=== PATIENT | male | born 1965 | race African-American/Black ===

== ENCOUNTER 2018-03-06 12:15 | Inpatient (IN) | payer OTHER ==
[2018-03-06 14:23] VITALS: BMI 20.3
--- NOTE | 2018-03-06 18:47 | HP ---
CIWA Score - CIWA Score Nausea/Vomitin-No Nausea/No Vomiting Muscle Tremors: 2 Anxiety: 3 Agitation: 4-Moderately Restless Paroxysmal Sweats: 2 Orientation: 0-Oriented Tacttile Disturbances: 1-Very Mild Itch/Numbness Auditory Disturbances: 0-None Visual Disturbances: 2-Mild Sensitivity Headache: 0-None Present CIWA-Ar Total Score: 14 Admission ROS BHS - HPI Chief Complaint: alcohol withdrawal symptoms Allergies/Adverse Reactions: Allergies Allergy/AdvReac Type Severity Reaction Status Date / Time No Known Allergies Allergy Verified 03/06/18 16:52 History of Present Illness: 52 yo male with hx of alcohol, nicotine and coaine dependence is here seeking detox. Last detox [facility] 2000. PMHX: HIV+, bipolar and schizophrenia. Denies suicidal / homicidal ideation or hx of suicide attempt. Denies hx of seizures or blackouts. Reports longest period of sobriety 10 years while incarcerated. Exam Limitations: No Limitations - Ebola screening Have you traveled outside of the country in the last 21 days: No Have you had contact with anyone from an Ebola affected area: No Have you been sick,other than usual withdrawal symptoms: No Do you have a fever: No - Review of Systems Constitutional: Loss of Appetite, Changes in sleep, Unintentional Wgt. Loss (30 lbs) EENT: reports: Nose Congestion, Other (decrease vision left) Respiratory: reports: No Symptoms reported Cardiac: reports: No Symptoms Reported GI: reports: Poor Fluid Intake : reports: No Symptoms Reported Musculoskeletal: reports: No Symptoms Reported Integumentary: reports: Dryness Neuro: reports: No Symptoms reported Endocrine: reports: Increased Thirst Hematology: reports: No Symptoms Reported Psychiatric: reports: Orientated x3, Agitated Other Systems: Reviewed and Negative Patient History - Patient Medical History Hx Anemia: No Hx Asthma: No Hx Chronic Obstructive Pulmonary Disease (COPD): No Hx Cancer: No Hx Cardiac Disorders: No Hx Congestive Heart Failure: No Hx Hypertension: No Hx Hypercholesterolemia: No Hx Pacemaker: No HX Cerebrovascular Accident: No Hx Seizures: No Hx Dementia: No Hx Diabetes: No Hx Gastrointestinal Disorders: No Hx Liver Disease: No Hx Genitourinary Disorders: No Hx Sexually Transmitted Disorders: No Hx Renal Disease (ESRD): No Hx Thyroid Disease: No Hx Human Immunodeficiency Virus (HIV): Yes (dx 1983 on Trimeq) Hx Hepatitis C: No Hx Depression: Yes Hx Suicide Attempt: No Hx Bipolar Disorder: Yes Hx Schizophrenia: Yes - Patient Surgical History Past Surgical History: Yes Hx Abdominal Surgery: Yes (Bilateral inguinal hernia sx) Other Surgical History: Sx L index finger. Anesthesia Reaction: Yes - PPD History Previous Implant?: Yes Documented Results: Negative w/o proof Implanted On Prior [facility] Admission?: No PPD to be Administered?: Yes - Smoking Cessation Smoking history: Current every day smoker Have you smoked in the past 12 months: Yes Aproximately how many cigarettes per day: 10 Hx Chewing Tobacco Use: No Initiated information on smoking cessation: Yes 'Breaking Loose' booklet given: 03/06/18 - Substance & Tx. History Hx Alcohol Use: Yes Hx Substance Use: Yes Substance Use Type: Alcohol Hx Substance Use Treatment: Yes ([facility] 2000) - Substances Abused Alcohol Route: Oral Frequency: Daily Amount used: 6PK MALT LIQUOR Age of first use: 15 Date of Last Use: 03/05/18 Family Disease History - Family Disease History Family History: Denies (" I have no family") Admission Physical Exam [facility] - Vital Signs Vital Signs: Vital Signs - 24 hr 03/06/18 14:21 Temperature 98.3 F Pulse Rate 78 Respiratory 18 Rate Blood Pressure 106/60 - Physical General Appearance: Yes: Appropriately Dressed, Thin, Sweating, Anxious HEENTM: Yes: EOMI, Hearing grossly Normal, Normal ENT Inspection, Normocephalic , Normal Voice, ALEJANDRA, Pharynx Normal, Tm's normal Respiratory: Yes: Chest Non-Tender, Lungs Clear, Normal Breath Sounds, No Respiratory Distress, No Accessory Muscle Use Neck: Yes: Within Normal Limits, No masses,lesions,Nodules Breast: Yes: Breast Exam Deferred Cardiology: Yes: Within Normal Limits Abdominal: Yes: Within Normal Limits Genitourinary: Yes: Within Normal Limits Back: Yes: Normal Inspection Musculoskeletal: Yes: full range of Motion, Gait Steady, Pelvis Stable Extremities: Yes: Within Normal Limits Neurological: Yes: hr payroll coordinator II-XII NML intact, Fully Oriented, Alert, Motor Strength 5/5, Depressed Affect Integumentary: Yes: Normal Color, Warm, Diaphoresis Lymphatic: Yes: Within Normal Limits - Diagnostic (1) HIV (human immunodeficiency virus infection) Current Visit: Yes Status: Chronic Comment: on Triumeq (2) Alcohol dependence with withdrawal Current Visit: Yes Status: Acute Qualifiers: Complication of substance-induced condition: uncomplicated Qualified Code(s ): F10.230 - Alcohol dependence with withdrawal, uncomplicated (3) Cocaine dependence Current Visit: Yes Status: Acute Qualifiers: Substance use status: uncomplicated Qualified Code(s): F14.20 - Cocaine dependence, uncomplicated (4) Psychiatric disorder Current Visit: Yes Status: Suspected Cleared for Admission [facility] - Detox or Rehab [facility] Level of Care: Medically Managed Detox Regimen/Protocol: Librium [facility] Breath Alcohol Content Breath Alcohol Content: 0 Urine Drug Screen - Results Drug Screen Negative: No Urine Drug Screen Results: SOPHY-Cocaine
[2018-03-06] MEDS ORDERED: MENTHOL/PHENOL 1 EACH UD MM PRN (18:52)
[2018-03-06] MEDS ORDERED: MAGNESIUM CITRATE 300 ML BOTTLE PO PRN (18:52)
[2018-03-06] MEDS ORDERED: chlordiazePOXIDE HCL 25 MG CAPSULE PO ONE (18:52)
[2018-03-06] MEDS ORDERED: guaiFENesin/D-METHORPHAN HB 10 ML UNIT-DOSE CUPS PO PRN (18:52)
[2018-03-06] MEDS ORDERED: IBUPROFEN 400 MG TABLET (FP) PO PRN (18:52)
[2018-03-06] MEDS ORDERED: MAG HYDROX/AL HYDROX/SIMETH 30 ML UNIT-DOSE CUP PO PRN (18:52)
[2018-03-06] MEDS ORDERED: P-EPHED 60MG/TRIPROLIDI 2.5MG TABLET PO PRN (18:52)
[2018-03-06] MEDS ORDERED: chlordiazePOXIDE HCL 25 MG CAPSULE PO PRN (18:52)
[2018-03-06] MEDS ORDERED: LOPERAMIDE HCL 2 MG CAPSULE PO PRN (18:52)
[2018-03-06] MEDS ORDERED: ACETAMINOPHEN 325 MG TABLET (FP) PO PRN (18:52)
[2018-03-06] MEDS ORDERED: MAGNESIUM HYDROX 2400MG/30ML ORAL SUSPENSION 30 ML CUP PO PRN (18:52)
[2018-03-06] MEDS ORDERED: NICOTINE POLACRILEX 2 MG GUM BUC PRN (18:52)
[2018-03-06] MEDS: THIAMINE HCL 100 MG TABLET (FP) PO SCH (22:52)
[2018-03-06] MEDS: MELATONIN 5 MG TABLETS PO PRN (22:52)
[2018-03-06] MEDS: chlordiazePOXIDE HCL 25 MG CAPSULE PO SCH (22:52)
[2018-03-06] MEDS: hydrOXYzine PAMOATE 50 MG CAPSULE (FP) PO PRN (22:52)
[2018-03-07 02:12] LABS: URINE APPEARANCE CLEAR; URINE BILIRUBIN NEGATIVE (<2.0 mg/dL); URINE COLOR LTYELLOW; URINE GLUCOSE (UA) NEGATIVE (NEGATIVE); URINE KETONE NEGATIVE (NEGATIVE); URINE LEUK ESTERASE NEGATIVE (NEGATIVE); URINE NITRITE NEGATIVE (NEGATIVE); URINE PROTEIN NEGATIVE (NEGATIVE); URINE UROBILINOGEN NEGATIVE mg/dL (0.2-1.0)
[2018-03-07] MEDS: chlordiazePOXIDE HCL 25 MG CAPSULE PO SCH ×4 (07:11→22:15)
--- NOTE | 2018-03-07 10:28 | EKG ---
Test Reason : Blood Pressure : / mmHG Vent. Rate : 067 BPM Atrial Rate : 067 BPM P-R Int : 124 ms QRS Dur : 086 ms QT Int : 396 ms P-R-T Axes : 069 084 074 degrees QTc Int : 418 ms NORMAL SINUS RHYTHM NORMAL ECG NO PREVIOUS ECGS AVAILABLE Confirmed by MARV CABELLO, VINAY ([id number]) on 03/07/2018 10:27:55 AM Referred By: Confirmed By:VINAY FAIR MD
[2018-03-07 10:55] LABS: HEMATOCRIT 38.5 % (35.4-49); HEMOGLOBIN 12.3 GM/dL (11.7-16.9); MCH 27.2 pg (25.7-33.7); MEAN PLT VOLUME 9.6 fl (7.5-11.1); PLATELET COUNT 269 K/MM3 (134-434); RBC 4.52 M/mm3 (4.00-5.60); RDW 17.7 % (11.9-15.9); WHITE BLOOD COUNT 3.8 K/mm3 (4.0-10.0)
[2018-03-07 11:09] LABS: CHLORIDE 110 mmol/L (98-107); POTASSIUM 4.5 mmol/L (3.5-5.1); SODIUM 146 mmol/L (136-145)
--- NOTE | 2018-03-07 11:16 | PN ---
S CIWA - CIWA Score Nausea/Vomitin Muscle Tremors: 3 Anxiety: 2 Agitation: 2 Paroxysmal Sweats: 1-Minimal Palms Moist Orientation: 0-Oriented Tacttile Disturbances: 1-Very Mild Itch/Numbness Auditory Disturbances: 1-Very Mild Visual Disturbances: 0-None Headache: 2-Mild CIWA-Ar Total Score: 15 S Progress Note (SOAP) Subjective: alert,irritable,anxious,interrupted sleep,tremor Objective: 03/07/18 11:14 Vital Signs Temperature 97.9 F 03/07/18 11:11 Pulse Rate 60 03/07/18 11:11 Respiratory Rate 16 03/07/18 11:11 Blood Pressure 110/73 03/07/18 11:11 O2 Sat by Pulse Oximetry (%) ekg nsr,normal ecg qt/qtc 396/418 Laboratory Last Values WBC 3.8 K/mm3 (4.0-10.0) L 03/07/18 07:00 RBC 4.52 M/mm3 (4.00-5.60) 03/07/18 07:00 Hgb 12.3 GM/dL (11.7-16.9) 03/07/18 07:00 Hct 38.5 % (35.4-49) 03/07/18 07:00 MCV 85.0 fl (80-96) 03/07/18 07:00 MCH 27.2 pg (25.7-33.7) 03/07/18 07:00 MCHC 32.0 g/dl (32.0-35.9) 03/07/18 07:00 RDW 17.7 % (11.9-15.9) H 03/07/18 07:00 Plt Count 269 K/MM3 (134-434) 03/07/18 07:00 MPV 9.6 fl (7.5-11.1) 03/07/18 07:00 Urine Color Ltyellow 03/07/18 00:45 Urine Appearance Clear 03/07/18 00:45 Urine pH 6.0 (5.0-8.0) 03/07/18 00:45 Ur Specific [place] 1.009 (1.001-1.035) 03/07/18 00:45 Urine Protein Negative (NEGATIVE) 03/07/18 00:45 Urine Glucose (UA) Negative (NEGATIVE) 03/07/18 00:45 Urine Ketones Negative (NEGATIVE) 03/07/18 00:45 Urine Blood Negative (NEGATIVE) 03/07/18 00:45 Urine Nitrite Negative (NEGATIVE) 03/07/18 00:45 Urine Bilirubin Negative (<2.0 mg/dL) 03/07/18 00:45 Urine Urobilinogen Negative mg/dL (0.2-1.0) 03/07/18 00:45 Ur Leukocyte Esterase Negative (NEGATIVE) 03/07/18 00:45 Assessment: 03/07/18 11:15 withdrawal symptom Plan: continue detox
[2018-03-07 11:24] LABS: ALBUMIN 2.9 g/dl (3.4-5.0); ALK PHOS 56 U/L (45-117); ANION GAP 8 MMOL/L (8-16); BILIRUBIN,TOTAL 0.3 mg/dL (0.2-1.0); BLOOD UREA NITROGEN 13 mg/dL (7-18); CALCIUM 8.7 mg/dL (8.5-10.1); CO2 28 mmol/L (21-32); CREATININE 0.8 mg/dL (0.7-1.3); GLUCOSE,RANDOM 80 mg/dL (74-106); SGOT/AST 15 U/L (15-37); SGPT/ALT 14 U/L (12-78); TOT PROT 6.3 g/dl (6.4-8.2)
--- NOTE | 2018-03-07 11:41 | CONSULT ---
[facility] Psychiatric Consult - Data Date of interview: 03/07/18 Admission source: [facility] Identifying data: Patient is a 52 year old single male, without children, unemployed, residing in an O, and [facility]. This is patient's first admission to detox at. [facility]. Pt. admitted to for alcohol and cocaine dependence. Substance Abuse History: Smoking Cessation. Smoking history: Current every day smoker. Have you smoked in the past 12 months: Yes. Aproximately how many cigarettes per day: 10. Hx Chewing Tobacco Use: No. Initiated information on smoking cessation: Yes. 'Breaking Loose' booklet given: 03/06/18. - Substance & Tx. History. Hx Alcohol Use: Yes. Hx Substance Use: Yes. Substance Use Type : Alcohol. Hx Substance Use Treatment: Yes ([facility] 2000). - Substances Abused. Alcohol. Route: Oral. Frequency: Daily. Amount used: 6PK MALT LIQUOR. Age of first use: 15. Date of Last Use: Medical History: Bilateral inguinal hernia sx, HIV, Sx L index finger Psychiatric History: Pt. presents as guarded with a flat affect. Pt. reports multiple psychiatric hospitalization (unable to recall psychiatric hospitals), most recently 8 months ago secondary to a suicide attempt via overdose. Outpatient psychiatric services is provided at the [facility] in the [place]. States he is prescribed risperdal 3mg qhs but reports sub-optimal adherence to medication. Pt. agreeable to accepting risperdal 2mg qhs. Physical/Sexual Abuse/Trauma History: denies. Mental Status Exam - Mental Status Exam Alert and Oriented to: Time, Place, Person Cognitive Function: Good Patient Appearance: Well Groomed Mood: Suspicious, Withdrawn Affect: Blunted Patient Behavior: Fatigued, Guarded Speech Pattern: Appropriate Voice Loudness: Moderately Soft/Quiet Thought Process: Goal Oriented Thought Disorder: Not Present Hallucinations: Denies Suicidal Ideation: Denies Homicidal Ideation: Denies Insight/Judgement: Poor Sleep: Fair Appetite: Fair Muscle strength/Tone: Normal Gait/Station: Other (Did not observe patient's gait.) Psychiatric Findings - Problem List ([place] 1, 2,3) (1) Substance induced mood disorder Status: Acute (2) Schizophrenia Status: Chronic Qualifiers: Schizophrenia type: unspecified Qualified Code(s): F20.9 - Schizophrenia, unspecified Comment: Self reports. (3) Alcohol dependence with withdrawal Status: Acute Qualifiers: Complication of substance-induced condition: uncomplicated Qualified Code(s ): F10.230 - Alcohol dependence with withdrawal, uncomplicated (4) Cocaine dependence Status: Acute Qualifiers: Substance use status: uncomplicated Qualified Code(s): F14.20 - Cocaine dependence, uncomplicated - Initial Treatment Plan Initial Treatment Plan: Psychoeducation provided. Detoxification in progress. Will order risperdal 2mg qhs. Benefits and side effects discussed. Verbal consent given.
[2018-03-07] MEDS: NICOTINE 14 MG/24 HOURS TOPICAL PATCH TD SCH (11:55)
[2018-03-07] MEDS: PRENATAL VITAMINS W/ FOLIC ACID TABLET (FP) PO SCH (11:55)
[2018-03-07] MEDS: MELATONIN 5 MG TABLETS PO PRN (22:14)
[2018-03-07] MEDS: hydrOXYzine PAMOATE 50 MG CAPSULE (FP) PO PRN (22:14)
[2018-03-07] MEDS: THIAMINE HCL 100 MG TABLET (FP) PO SCH (22:15)
[2018-03-07] MEDS: risperiDONE 2 MG TABLET PO SCH (22:15)
[2018-03-08] MEDS: chlordiazePOXIDE HCL 25 MG CAPSULE PO SCH ×3 (06:01→17:47)
[2018-03-08] MEDS: PRENATAL VITAMINS W/ FOLIC ACID TABLET (FP) PO SCH (10:12)
[2018-03-08] MEDS: NICOTINE 14 MG/24 HOURS TOPICAL PATCH TD SCH (10:13)
--- NOTE | 2018-03-08 13:44 | PN ---
[facility] CIWA - CIWA Score Nausea/Vomitin-Mild Nausea/No Vomiting Muscle Tremors: 4-Moderate,w/Arms Extend Anxiety: 3 Agitation: 3 Paroxysmal Sweats: 1-Minimal Palms Moist Orientation: 0-Oriented Tacttile Disturbances: 1-Very Mild Itch/Numbness Auditory Disturbances: 0-None Visual Disturbances: 0-None Headache: 0-None Present CIWA-Ar Total Score: 13 BHS Progress Note (SOAP) Subjective: sweat tremor trouble sleep at night restlessness Objective: 03/08/18 13:43 Vital Signs Temperature 98.1 F 03/08/18 13:38 Pulse Rate 86 03/08/18 13:38 Respiratory Rate 16 03/08/18 13:38 Blood Pressure 110/68 03/08/18 13:38 O2 Sat by Pulse Oximetry (%) Laboratory Last Values WBC 3.8 K/mm3 (4.0-10.0) L 03/07/18 07:00 RBC 4.52 M/mm3 (4.00-5.60) 03/07/18 07:00 Hgb 12.3 GM/dL (11.7-16.9) 03/07/18 07:00 Hct 38.5 % (35.4-49) 03/07/18 07:00 MCV 85.0 fl (80-96) 03/07/18 07:00 MCH 27.2 pg (25.7-33.7) 03/07/18 07:00 MCHC 32.0 g/dl (32.0-35.9) 03/07/18 07:00 RDW 17.7 % (11.9-15.9) H 03/07/18 07:00 Plt Count 269 K/MM3 (134-434) 03/07/18 07:00 MPV 9.6 fl (7.5-11.1) 03/07/18 07:00 Sodium 146 mmol/L (136-145) H 03/07/18 07:00 Potassium 4.5 mmol/L (3.5-5.1) 03/07/18 07:00 Chloride 110 mmol/L (98-107) H 03/07/18 07:00 Carbon Dioxide 28 mmol/L (21-32) 03/07/18 07:00 Anion Gap 8 MMOL/L (8-16) 03/07/18 07:00 BUN 13 mg/dL (7-18) 03/07/18 07:00 Creatinine 0.8 mg/dL (0.7-1.3) 03/07/18 07:00 Creat Clearance w eGFR > 60 (>60) 03/07/18 07:00 Random Glucose 80 mg/dL (74-106) 03/07/18 07:00 Calcium 8.7 mg/dL (8.5-10.1) 03/07/18 07:00 Total Bilirubin 0.3 mg/dL (0.2-1.0) 03/07/18 07:00 AST 15 U/L (15-37) 03/07/18 07:00 ALT 14 U/L (12-78) 03/07/18 07:00 Alkaline Phosphatase 56 U/L (45-117) 03/07/18 07:00 Total Protein 6.3 g/dl (6.4-8.2) L 03/07/18 07:00 Albumin 2.9 g/dl (3.4-5.0) L 03/07/18 07:00 Urine Color Ltyellow 03/07/18 00:45 Urine Appearance Clear 03/07/18 00:45 Urine pH 6.0 (5.0-8.0) 03/07/18 00:45 Ur Specific [place] 1.009 (1.001-1.035) 03/07/18 00:45 Urine Protein Negative (NEGATIVE) 03/07/18 00:45 Urine Glucose (UA) Negative (NEGATIVE) 03/07/18 00:45 Urine Ketones Negative (NEGATIVE) 03/07/18 00:45 Urine Blood Negative (NEGATIVE) 03/07/18 00:45 Urine Nitrite Negative (NEGATIVE) 03/07/18 00:45 Urine Bilirubin Negative (<2.0 mg/dL) 03/07/18 00:45 Urine Urobilinogen Negative mg/dL (0.2-1.0) 03/07/18 00:45 Ur Leukocyte Esterase Negative (NEGATIVE) 03/07/18 00:45 RPR Titer Nonreactive (NONREACTIVE) 03/07/18 07:00 lab noted Assessment: 03/08/18 13:44 withdrawal sx Plan: continue detox
[2018-03-08] MEDS: THIAMINE HCL 100 MG TABLET (FP) PO SCH (22:40)
[2018-03-08] MEDS: risperiDONE 2 MG TABLET PO SCH (22:41)
[2018-03-08] MEDS: chlordiazePOXIDE 5 MG CAPSULE PO SCH (22:41)
[2018-03-09] MEDS: chlordiazePOXIDE 5 MG CAPSULE PO SCH ×3 (06:05→17:50)
[2018-03-09] MEDS: PRENATAL VITAMINS W/ FOLIC ACID TABLET (FP) PO SCH (10:19)
[2018-03-09] MEDS: NICOTINE 14 MG/24 HOURS TOPICAL PATCH TD SCH (10:20)
--- NOTE | 2018-03-09 15:13 | PN ---
BHS Progress Note (SOAP) Subjective: feeling better no tremor no gi distress social with peers in day rool less sweat sleep better at night Objective: 03/09/18 15:12 Vital Signs Temperature 97.9 F 03/09/18 14:08 Pulse Rate 56 L 03/09/18 14:08 Respiratory Rate 18 03/09/18 14:08 Blood Pressure 135/83 03/09/18 14:08 O2 Sat by Pulse Oximetry (%) Laboratory Last Values WBC 3.8 K/mm3 (4.0-10.0) L 03/07/18 07:00 RBC 4.52 M/mm3 (4.00-5.60) 03/07/18 07:00 Hgb 12.3 GM/dL (11.7-16.9) 03/07/18 07:00 Hct 38.5 % (35.4-49) 03/07/18 07:00 MCV 85.0 fl (80-96) 03/07/18 07:00 MCH 27.2 pg (25.7-33.7) 03/07/18 07:00 MCHC 32.0 g/dl (32.0-35.9) 03/07/18 07:00 RDW 17.7 % (11.9-15.9) H 03/07/18 07:00 Plt Count 269 K/MM3 (134-434) 03/07/18 07:00 MPV 9.6 fl (7.5-11.1) 03/07/18 07:00 Sodium 146 mmol/L (136-145) H 03/07/18 07:00 Potassium 4.5 mmol/L (3.5-5.1) 03/07/18 07:00 Chloride 110 mmol/L (98-107) H 03/07/18 07:00 Carbon Dioxide 28 mmol/L (21-32) 03/07/18 07:00 Anion Gap 8 MMOL/L (8-16) 03/07/18 07:00 BUN 13 mg/dL (7-18) 03/07/18 07:00 Creatinine 0.8 mg/dL (0.7-1.3) 03/07/18 07:00 Creat Clearance w eGFR > 60 (>60) 03/07/18 07:00 Random Glucose 80 mg/dL (74-106) 03/07/18 07:00 Calcium 8.7 mg/dL (8.5-10.1) 03/07/18 07:00 Total Bilirubin 0.3 mg/dL (0.2-1.0) 03/07/18 07:00 AST 15 U/L (15-37) 03/07/18 07:00 ALT 14 U/L (12-78) 03/07/18 07:00 Alkaline Phosphatase 56 U/L (45-117) 03/07/18 07:00 Total Protein 6.3 g/dl (6.4-8.2) L 03/07/18 07:00 Albumin 2.9 g/dl (3.4-5.0) L 03/07/18 07:00 Urine Color Ltyellow 03/07/18 00:45 Urine Appearance Clear 03/07/18 00:45 Urine pH 6.0 (5.0-8.0) 03/07/18 00:45 Ur Specific [place] 1.009 (1.001-1.035) 03/07/18 00:45 Urine Protein Negative (NEGATIVE) 03/07/18 00:45 Urine Glucose (UA) Negative (NEGATIVE) 03/07/18 00:45 Urine Ketones Negative (NEGATIVE) 03/07/18 00:45 Urine Blood Negative (NEGATIVE) 03/07/18 00:45 Urine Nitrite Negative (NEGATIVE) 03/07/18 00:45 Urine Bilirubin Negative (<2.0 mg/dL) 03/07/18 00:45 Urine Urobilinogen Negative mg/dL (0.2-1.0) 03/07/18 00:45 Ur Leukocyte Esterase Negative (NEGATIVE) 03/07/18 00:45 RPR Titer Nonreactive (NONREACTIVE) 03/07/18 07:00 lab noted Assessment: 03/09/18 15:12 mild withdrawal sx Plan: medically supervised detox
[2018-03-09] MEDS: risperiDONE 2 MG TABLET PO SCH (22:33)
[2018-03-09] MEDS: chlordiazePOXIDE HCL 10 MG CAPSULE PO SCH (22:33)
[2018-03-09] MEDS: THIAMINE HCL 100 MG TABLET (FP) PO SCH (22:33)
[2018-03-10] MEDS: chlordiazePOXIDE HCL 10 MG CAPSULE PO SCH ×2 (05:12→10:10)
--- NOTE | 2018-03-10 08:24 | DS ---
[facility] Detox Discharge Summary Admission Date: 03/06/18 Discharge Date: 03/10/18 - History Present History: Alcohol Dependence Additional Comments: 52 years old male admitted on 03/06/18 for alcohol withdrawal sx completed alcohol detox regimen tolerated well denies alcohol withdrawal sx alert oriented x 3 no acute distress aftercare [facility] case discussed with counselor that the patient can be admitted to [facility] ART adherence - Physical Exam Results Vital Signs: Vital Signs Temperature 97.3 F L 03/10/18 06:00 Pulse Rate 60 03/10/18 06:00 Respiratory Rate 18 03/10/18 06:00 Blood Pressure 101/58 03/10/18 06:00 O2 Sat by Pulse Oximetry (%) Pertinent Admission Physical Exam Findings: alcohol withdrawal sx Vital Signs Temperature 97.9 F 03/10/18 09:20 Pulse Rate 95 H 03/10/18 09:20 Respiratory Rate 18 03/10/18 09:20 Blood Pressure 116/76 03/10/18 09:20 O2 Sat by Pulse Oximetry (%) Laboratory Last Values WBC 3.8 K/mm3 (4.0-10.0) L 03/07/18 07:00 RBC 4.52 M/mm3 (4.00-5.60) 03/07/18 07:00 Hgb 12.3 GM/dL (11.7-16.9) 03/07/18 07:00 Hct 38.5 % (35.4-49) 03/07/18 07:00 MCV 85.0 fl (80-96) 03/07/18 07:00 MCH 27.2 pg (25.7-33.7) 03/07/18 07:00 MCHC 32.0 g/dl (32.0-35.9) 03/07/18 07:00 RDW 17.7 % (11.9-15.9) H 03/07/18 07:00 Plt Count 269 K/MM3 (134-434) 03/07/18 07:00 MPV 9.6 fl (7.5-11.1) 03/07/18 07:00 Sodium 146 mmol/L (136-145) H 03/07/18 07:00 Potassium 4.5 mmol/L (3.5-5.1) 03/07/18 07:00 Chloride 110 mmol/L (98-107) H 03/07/18 07:00 Carbon Dioxide 28 mmol/L (21-32) 03/07/18 07:00 Anion Gap 8 MMOL/L (8-16) 03/07/18 07:00 BUN 13 mg/dL (7-18) 03/07/18 07:00 Creatinine 0.8 mg/dL (0.7-1.3) 03/07/18 07:00 Creat Clearance w eGFR > 60 (>60) 03/07/18 07:00 Random Glucose 80 mg/dL (74-106) 03/07/18 07:00 Calcium 8.7 mg/dL (8.5-10.1) 03/07/18 07:00 Total Bilirubin 0.3 mg/dL (0.2-1.0) 03/07/18 07:00 AST 15 U/L (15-37) 03/07/18 07:00 ALT 14 U/L (12-78) 03/07/18 07:00 Alkaline Phosphatase 56 U/L (45-117) 03/07/18 07:00 Total Protein 6.3 g/dl (6.4-8.2) L 03/07/18 07:00 Albumin 2.9 g/dl (3.4-5.0) L 03/07/18 07:00 Urine Color Ltyellow 03/07/18 00:45 Urine Appearance Clear 03/07/18 00:45 Urine pH 6.0 (5.0-8.0) 03/07/18 00:45 Ur Specific [place] 1.009 (1.001-1.035) 03/07/18 00:45 Urine Protein Negative (NEGATIVE) 03/07/18 00:45 Urine Glucose (UA) Negative (NEGATIVE) 03/07/18 00:45 Urine Ketones Negative (NEGATIVE) 03/07/18 00:45 Urine Blood Negative (NEGATIVE) 03/07/18 00:45 Urine Nitrite Negative (NEGATIVE) 03/07/18 00:45 Urine Bilirubin Negative (<2.0 mg/dL) 03/07/18 00:45 Urine Urobilinogen Negative mg/dL (0.2-1.0) 03/07/18 00:45 Ur Leukocyte Esterase Negative (NEGATIVE) 03/07/18 00:45 RPR Titer Nonreactive (NONREACTIVE) 03/07/18 07:00 lab noted - Treatment Hospital Course: Detox Protocol Followed, Detoxed Safely, Responded well, Discharged Condition Good, Rehab Referral Accepted Patient has Accepted a Rehab Referral to: [facility] - Medication Discharge Medications: Ambulatory Orders Abacavir/Dolutegravir/Lamivudi [Triumeq Tablet] 1 each PO DAILY 03/06/18 Multivitamins [Multivit ([facility] Formulary)] 1 tab PO DAILY 03/06/18 Risperidone [Risperdal -] 3 mg PO BID 03/06/18 - Diagnosis (1) Alcohol dependence with withdrawal Current Visit: Yes Status: Acute Qualifiers: Complication of substance-induced condition: uncomplicated Qualified Code(s ): F10.230 - Alcohol dependence with withdrawal, uncomplicated (2) HIV (human immunodeficiency virus infection) Current Visit: Yes Status: Chronic (3) Schizophrenia Current Visit: Yes Status: Suspected Qualifiers: Schizophrenia type: unspecified Qualified Code(s): F20.9 - Schizophrenia, unspecified - AMA Did Patient Leave Against Medical Advice: No
[2018-03-10 09:20] VITALS: BP 116/76; PULSE 95; TEMP 97.9
[2018-03-10] MEDS: PRENATAL VITAMINS W/ FOLIC ACID TABLET (FP) PO SCH (10:09)
[2018-03-10] MEDS: NICOTINE 14 MG/24 HOURS TOPICAL PATCH TD SCH (10:09)
== END 2018-03-10 12:08 | disposition other institution (70) | DRG 774 ==
LOC: YASAS 12:15 → Y6N 18:11
PROC: HZ2ZZZZ Detoxification Services for Substance Abuse Treatment (ICD-10-PCS; principal; 2018-03-06)
DX: F10.230 Alcohol dependence with withdrawal, uncomplicated (principal); F14.20 Cocaine dependence, uncomplicated; F20.9 Schizophrenia, unspecified; F19.24 Other psychoactive substance dependence with psychoactive substance-induced mood disorder; F99 Mental disorder, not otherwise specified; F31.9 Bipolar disorder, unspecified; Z21 Asymptomatic human immunodeficiency virus [HIV] infection status
CPT/HCPCS: 36415; 80053; 81003; 85027; 86593; 93005; 93010

== ENCOUNTER 2018-03-10 12:26 | Inpatient (IN) | payer OTHER ==
[2018-03-10] MEDS ORDERED: NICOTINE POLACRILEX 2 MG GUM BUC PRN (14:02)
[2018-03-10] MEDS ORDERED: guaiFENesin/D-METHORPHAN HB 10 ML UNIT-DOSE CUPS PO PRN (14:02)
[2018-03-10] MEDS ORDERED: MENTHOL/PHENOL 1 EACH UD MM PRN (14:02)
[2018-03-10] MEDS ORDERED: MAGNESIUM CITRATE 300 ML BOTTLE PO PRN (14:02)
[2018-03-10] MEDS ORDERED: ACETAMINOPHEN 325 MG TABLET (FP) PO PRN (14:02)
[2018-03-10] MEDS ORDERED: P-EPHED 60MG/TRIPROLIDI 2.5MG TABLET PO PRN (14:02)
[2018-03-10] MEDS ORDERED: MAGNESIUM HYDROX 2400MG/30ML ORAL SUSPENSION 30 ML CUP PO PRN (14:02)
[2018-03-10] MEDS ORDERED: IBUPROFEN 400 MG TABLET (FP) PO PRN (14:02)
[2018-03-10] MEDS ORDERED: NICOTINE 14 MG/24 HOURS TOPICAL PATCH TD PRN (14:02)
[2018-03-10] MEDS ORDERED: LOPERAMIDE HCL 2 MG CAPSULE PO PRN (14:02)
--- NOTE | 2018-03-10 14:02 | HP ---
RAMONITA CABELLO Rehab Assess/Revision - Admission History Admitted to Rehab from: [facility] Date of Admission to Rehab: 03/10/18 - Vital signs Vital Signs: Vital Signs Period Temp Pulse Resp BP Sys/Watkins Pulse Ox Last 24 Hr 98.1 F 90 18 119/80 - Findings Detox History & Physical reviewed: Yes Concur with findings: Yes Comments/Additional Findings: transferred from detox to rehab admission as per protocol Inpatient Rehab Admission - Initial Determination Are CD services needed?: Yes Free of communicable disease: Yes Not in need of hospitalization: Yes - Rehab Admission Criteria Previous failed treatment: Yes Poor recovery environment: Yes Comorbidities: Yes Lacks judgement: No Patient is meeting Inpatient Rehab admission criteria:: Yes
--- NOTE | 2018-03-10 14:42 | PN ---
[facility] Progress Note Note: Psychiatric nurse practitioner note: New admission to 5N. Will continue current medication regime of risperdal 2mg qhs. Pt. to be seen by copywriter tomorrow morning.
[2018-03-10] MEDS: THIAMINE HCL 100 MG TABLET (FP) PO SCH (21:59)
[2018-03-10] MEDS ORDERED: risperiDONE 2 MG TABLET PO SCH (22:00)
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
[2018-03-11] MEDS: PRENATAL VITAMINS W/ FOLIC ACID TABLET (FP) PO SCH (11:00)
[2018-03-11] MEDS: THIAMINE HCL 100 MG TABLET (FP) PO SCH (21:43)
[2018-03-11] MEDS: risperiDONE 3 MG TABLET PO SCH (21:43)
[2018-03-12] MEDS: PRENATAL VITAMINS W/ FOLIC ACID TABLET (FP) PO SCH (10:22)
[2018-03-12] MEDS: THIAMINE HCL 100 MG TABLET (FP) PO SCH (21:43)
[2018-03-12] MEDS: risperiDONE 3 MG TABLET PO SCH (21:43)
[2018-03-13] MEDS: PRENATAL VITAMINS W/ FOLIC ACID TABLET (FP) PO SCH (10:10)
--- NOTE | 2018-03-13 18:14 | PN ---
S Progress Note Note: Psychiatric nurse practitioner note: Vaccinator able to verify patient's risperdal dose of 3mg BID by obtaining his prescription bottle that was in his personal belongings in the security office. Risperdal bottle was dated for 01/13/2018. Pt. agreeable to titration of risperdal. Pt is currently accepting risperdal 3mg qhs. Will order risperdal 1mg daily + cogentin 1mg qhs and continue risperdal 3mg qhs. Verbal consent given.
[2018-03-13] MEDS: THIAMINE HCL 100 MG TABLET (FP) PO SCH (21:25)
[2018-03-13] MEDS: BENZTROPINE MESYLATE 1 MG TABLET (FP) PO SCH (21:25)
[2018-03-13] MEDS: risperiDONE 3 MG TABLET PO SCH (21:25)
[2018-03-14] MEDS ORDERED: risperiDONE 1 MG TABLET (FP) PO SCH (10:00)
[2018-03-14] MEDS: PRENATAL VITAMINS W/ FOLIC ACID TABLET (FP) PO SCH (10:58)
--- NOTE | 2018-03-14 18:10 | PN ---
S Progress Note Note: Psychiatric nurse practitioner note: Patient able to tolerate increase in medication of risperdal 1mg + risperdal 3mg qhs. Will increase morning risperdal dose to 2mg. No reports of sedation, stiffness, or dizziness. Verbal consent given. Will increase risperdal AM dose to 2mg.
[2018-03-14] MEDS: BENZTROPINE MESYLATE 1 MG TABLET (FP) PO SCH (22:30)
[2018-03-14] MEDS: THIAMINE HCL 100 MG TABLET (FP) PO SCH (22:30)
[2018-03-14] MEDS: risperiDONE 3 MG TABLET PO SCH (22:30)
[2018-03-14] MEDS: MELATONIN 5 MG TABLETS PO PRN (22:30)
[2018-03-15] MEDS: risperiDONE 1 MG TABLET (FP) PO SCH (10:28)
[2018-03-15] MEDS: PRENATAL VITAMINS W/ FOLIC ACID TABLET (FP) PO SCH (10:28)
[2018-03-15] MEDS: BENZTROPINE MESYLATE 1 MG TABLET (FP) PO SCH (22:01)
[2018-03-15] MEDS: THIAMINE HCL 100 MG TABLET (FP) PO SCH (22:01)
[2018-03-15] MEDS: risperiDONE 3 MG TABLET PO SCH (22:02)
[2018-03-16] MEDS: PRENATAL VITAMINS W/ FOLIC ACID TABLET (FP) PO SCH (10:32)
[2018-03-16] MEDS: risperiDONE 1 MG TABLET (FP) PO SCH (10:32)
[2018-03-16] MEDS: THIAMINE HCL 100 MG TABLET (FP) PO SCH (21:56)
[2018-03-16] MEDS: BENZTROPINE MESYLATE 1 MG TABLET (FP) PO SCH (21:56)
[2018-03-16] MEDS: risperiDONE 3 MG TABLET PO SCH (21:56)
[2018-03-16] MEDS: MELATONIN 5 MG TABLETS PO PRN (21:57)
[2018-03-17] MEDS ORDERED: PT OWN MED DRAWER 7, Y5N ONE ×2 (09:22)
[2018-03-17] MEDS: risperiDONE 1 MG TABLET (FP) PO SCH (10:45)
[2018-03-17] MEDS: PRENATAL VITAMINS W/ FOLIC ACID TABLET (FP) PO SCH (10:45)
[2018-03-17] MEDS: THIAMINE HCL 100 MG TABLET (FP) PO SCH (22:01)
[2018-03-17] MEDS: risperiDONE 3 MG TABLET PO SCH (22:01)
[2018-03-17] MEDS: BENZTROPINE MESYLATE 1 MG TABLET (FP) PO SCH (22:01)
[2018-03-18] MEDS: risperiDONE 1 MG TABLET (FP) PO SCH (10:39)
[2018-03-18] MEDS: PRENATAL VITAMINS W/ FOLIC ACID TABLET (FP) PO SCH (10:39)
[2018-03-18] MEDS: MAG HYDROX/AL HYDROX/SIMETH 30 ML UNIT-DOSE CUP PO PRN (16:32)
--- NOTE | 2018-03-18 18:39 | PN ---
S Progress Note (SOAP) Subjective: C/o steady sharp, lightening bolt, epigastric chest pain since about 12 noon today. Has experienced intermittent chest pain in past r/t acid reflux. Denies radiation of pain. Denies difficulty breathing or shortness of breath. pain increases when starts eating. Pain decreases a little when leans forward. Took mylanta earlier which did not help. Objective: Alert and oriented x 3. Ambulating w/o evidence of SOB or increased chest pain. Heart rate - regular rhythm. No murmurs noted. Lungs CTA. Abd S/NT/BS+. Vital Signs - 24 hr 03/18/18 03/18/18 03/18/18 00:30 03:30 06:53 Temperature 97.7 F Pulse Rate 71 Respiratory 18 18 18 Rate Blood Pressure 112/72 03/18/18 03/18/18 16:25 18:16 Temperature 98.5 F 98.3 F Pulse Rate 76 80 Respiratory 18 17 Rate Blood Pressure 101/66 120/69 Stat EKG shows Normal Sinus Rhythm. Assessment: r/o GERD Plan: Start on protonix 20 mg PO BID Encourage to avoid acid/spicy foods Elevate head and shoulder when in bed. Notify staff of any increased chest pain or SOB.
[2018-03-18] MEDS: BENZTROPINE MESYLATE 1 MG TABLET (FP) PO SCH (21:40)
[2018-03-18] MEDS: risperiDONE 3 MG TABLET PO SCH (21:40)
[2018-03-18] MEDS: PANTOPRAZOLE 20 MG TABLET (FP) PO SCH (21:40)
[2018-03-18] MEDS: THIAMINE HCL 100 MG TABLET (FP) PO SCH (21:40)
--- NOTE | 2018-03-19 09:06 | PN ---
[facility] Progress Note Note: Psychiatric nurse practitoner note: Pt. alert and oriented X3. Pt. able to tolerate his current medication regime of risperdal 2mg daily +3mg qhs. Pt. agreeable to an increase of his morning risperdal to 3mg. Pt. is currently prescribed risperdal 3mg BID by his outpatient psychiatrist but due to sub-optimal adherence medication was lowered upon admission to detox. Risperdal 3mg BID ordered Verbal consent given.
[2018-03-19] MEDS: risperiDONE 3 MG TABLET PO SCH ×2 (10:47→21:47)
[2018-03-19] MEDS: PANTOPRAZOLE 20 MG TABLET (FP) PO SCH ×2 (10:47→21:47)
[2018-03-19] MEDS: PRENATAL VITAMINS W/ FOLIC ACID TABLET (FP) PO SCH (10:47)
--- NOTE | 2018-03-19 11:45 | EKG ---
Test Reason : Blood Pressure : / mmHG Vent. Rate : 069 BPM Atrial Rate : 069 BPM P-R Int : 142 ms QRS Dur : 082 ms QT Int : 398 ms P-R-T Axes : 062 079 062 degrees QTc Int : 426 ms NORMAL SINUS RHYTHM NORMAL ECG WHEN COMPARED WITH ECG OF 06-MAR-2018 19:50, NO SIGNIFICANT CHANGE WAS FOUND Confirmed by VINAY FAIR MD ([id number]) on 03/19/2018 11:44:52 AM Referred By: Confirmed By:VINAY FAIR MD
[2018-03-19] MEDS: THIAMINE HCL 100 MG TABLET (FP) PO SCH (21:47)
[2018-03-19] MEDS: BENZTROPINE MESYLATE 1 MG TABLET (FP) PO SCH (21:47)
[2018-03-20] MEDS: PANTOPRAZOLE 20 MG TABLET (FP) PO SCH ×2 (10:47→21:51)
[2018-03-20] MEDS: risperiDONE 3 MG TABLET PO SCH ×2 (10:47→21:51)
[2018-03-20] MEDS: PRENATAL VITAMINS W/ FOLIC ACID TABLET (FP) PO SCH (10:48)
--- NOTE | 2018-03-20 15:33 | PN ---
Psychiatric Progress Note Vital Signs: Vital Signs Period Temp Pulse Resp BP Sys/Watkins Pulse Ox Last 24 Hr 98.2 F 81 18-18 101/66 Date of Session: 03/20/18 Chief Complaint:: "Discharge" HPI: Pt. was admitted to rehab for alcohol and cocaine dependence. ROS: Bilateral inguinal hernia sx, HIV, Sx L index finger Current Medications: Active Medications Generic Name Dose Route Start Last Admin Trade Name Freq PRN Reason Stop Dose Admin Acetaminophen 650 mg 03/10/18 14:02 Tylenol - PO Q4H PRN FEVER Al Hydroxide/Mg Hydroxide 30 ml 03/10/18 14:02 03/18/18 16:32 Mylanta Oral Suspension - PO 30 ml Q6H PRN Administration DYSPEPSIA Benztropine Mesylate 1 mg 03/13/18 22:00 03/19/18 21:47 Cogentin - PO 1 mg HS ANIKA Administration Eucalyptus/Menthol/Phenol/Sorbitol 1 each 03/10/18 14:02 Cepastat Lozenge - MM Q4H PRN SORE THROAT Guaifenesin 10 ml 03/10/18 14:02 Robitussin Dm - PO Q6H PRN COUGH Ibuprofen 400 mg 03/10/18 14:02 Motrin - PO Q6H PRN Pain Level 4-6 Loperamide HCl 4 mg 03/10/18 14:02 Imodium - PO Q6H PRN DIARRHEA Magnesium Citrate 300 ml 03/10/18 14:02 Citroma - PO Q48H PRN CONSTIPATION Magnesium Hydroxide 30 ml 03/10/18 14:02 Milk Of Magnesia - PO DAILY PRN CONSTIPATION Melatonin 5 mg 03/10/18 22:00 03/16/18 21:57 Melatonin PO 5 mg HS PRN Administration INSOMNIA Nicotine 14 mg 03/10/18 14:02 Nicoderm Patch - TD DAILY PRN WITHDRAWAL(CONT SUBST) Nicotine Polacrilex 2 mg 03/10/18 14:02 Nicorette Gum - BUC Q2H PRN NICOTINE REPLACEMENT RX Non-Formulary Medication 1 each 03/10/18 22:15 03/20/18 10:47 Abacavir/Dolutegravir/Lamivudi [Triumeq Tablet] PO 1 each DAILY ANIKA Administration Pantoprazole Sodium 20 mg 03/18/18 22:00 03/20/18 10:47 Protonix - PO 20 mg BID ANIKA Administration Multivit/Folic Acid/Iron 1 tab 03/11/18 10:00 03/20/18 10:48 Vitamins (Sjr) - PO 1 tab DAILY ANIKA Administration Pseudoephedrine/Triprolidine 1 combo 03/10/18 14:02 Actifed - PO TID PRN NASAL CONGESTION Risperidone 3 mg 03/19/18 10:00 03/20/18 10:47 Risperdal - PO 3 mg BID ANIKA Administration Thiamine HCl 100 mg 03/10/18 22:00 03/19/18 21:47 Vitamin B1 - PO 100 mg HS ANIKA Administration Medication(s) Change(s): No. Current Side Effect: No Lab tests ordered: No Lab tests reviewed: Yes Provider note:: Patient will complete the rehabilitation program on 03/21/18. Though participation of the rehabilitation program patient was able to learn the importance of changing his behaviors and the need for more structure in his life. Patient has met his treatment goals and his able to identify behaviors that contribute to relapsing. Patient will continue to address additional issues at the [facility] in the [place], [place]. Pt was able to accept risperdal 3mg BID + Cogentin 1mg qhs with favorable effect. Pt. reports having enough medications after discharge and does not need a prescription of his medications. Patient is stable for discharge on 03/21/18. Total face to face time:: 35 Mental Status Exam - Mental Status Exam Alert and Oriented to: Time, Place, Person Cognitive Function: Good Patient Appearance: Well Groomed Mood: Hopeful Affect: Appropriate Patient Behavior: Appropriate, Cooperative Speech Pattern: Clear, Appropriate Voice Loudness: Normal Thought Process: Intact, Goal Oriented Thought Disorder: Not Present Hallucinations: Denies Suicidal Ideation: Denies Homicidal Ideation: Denies Insight/Judgement: Good Sleep: Well Appetite: Good Muscle strength/Tone: Normal Gait/Station: Normal Psychiatric Treatment Plan - Problem List (1) Alcohol dependence Current Visit: Yes (2) Cocaine dependence Current Visit: Yes Qualifiers: Substance use status: uncomplicated Qualified Code(s): F14.20 - Cocaine dependence, uncomplicated (3) Schizophrenia Current Visit: Yes Qualifiers: Schizophrenia type: unspecified Qualified Code(s): F20.9 - Schizophrenia, unspecified Comment: Self reports. (4) Mood disorder Current Visit: Yes
--- NOTE | 2018-03-20 15:42 | PN ---
S Progress Note Note: Vital Signs Temperature 98.2 F 03/20/18 07:31 Pulse Rate 81 03/20/18 07:31 Respiratory Rate 18 03/20/18 07:31 Blood Pressure 101/66 03/20/18 07:31 O2 Sat by Pulse Oximetry (%) Patient medically stable. patient schedule to complete this program 03/21/18. Patient to follow up with primary care provider 1-2 weeks post discharge.
[2018-03-20] MEDS: MAG HYDROX/AL HYDROX/SIMETH 30 ML UNIT-DOSE CUP PO PRN (19:16)
[2018-03-20] MEDS: THIAMINE HCL 100 MG TABLET (FP) PO SCH (21:51)
[2018-03-20] MEDS: BENZTROPINE MESYLATE 1 MG TABLET (FP) PO SCH (21:51)
[2018-03-21 07:23] VITALS: BP 95/68; PULSE 96; TEMP 97.8
[2018-03-21] MEDS: PRENATAL VITAMINS W/ FOLIC ACID TABLET (FP) PO SCH (10:44)
[2018-03-21] MEDS: risperiDONE 3 MG TABLET PO SCH (10:44)
[2018-03-21] MEDS: PANTOPRAZOLE 20 MG TABLET (FP) PO SCH (10:44)
== END 2018-03-21 11:20 | disposition other institution (70) | DRG 772 ==
LOC: YASAS 12:26 → Y5N 12:27
PROVIDERS: ADMIT Psychiatry & Neurology Psychiatry; ATTEND Psychiatry & Neurology Psychiatry
PROC: HZ42ZZZ Group Counseling for Substance Abuse Treatment, Cognitive-Behavioral (ICD-10-PCS; principal; 2018-03-10)
DX: F10.20 Alcohol dependence, uncomplicated (principal); F14.20 Cocaine dependence, uncomplicated; F31.9 Bipolar disorder, unspecified; F20.9 Schizophrenia, unspecified; F39 Unspecified mood [affective] disorder; K21.9 Gastro-esophageal reflux disease without esophagitis; Z91.5 Personal history of self-harm; Z21 Asymptomatic human immunodeficiency virus [HIV] infection status
CPT/HCPCS: 93005; 93010; J2794

== ENCOUNTER 2022-03-13 14:13 | Inpatient (IN) | payer OTHER ==
[2022-03-13 17:40] VITALS: BMI 19.0
[2022-03-13] MEDS ORDERED: MAG HYDROX/AL HYDROX/SIMETH 30 ML UNIT-DOSE CUP PO PRN (18:48)
[2022-03-13] MEDS ORDERED: IBUPROFEN 400 MG TABLET (FP) PO PRN (18:48)
[2022-03-13] MEDS ORDERED: LOPERAMIDE HCL 2 MG CAPSULE PO PRN (18:48)
[2022-03-13] MEDS ORDERED: guaiFENesin 200 MG/10 ML 10 ML UNIT-DOSE CUPS PO PRN (18:48)
[2022-03-13] MEDS ORDERED: NICOTINE POLACRILEX 2 MG GUM BC PRN (18:48)
[2022-03-13] MEDS ORDERED: MAGNESIUM CITRATE 300 ML BOTTLE PO PRN (18:48)
[2022-03-13] MEDS ORDERED: P-EPHED 60MG/TRIPROLIDI 2.5MG TABLET PO PRN (18:48)
[2022-03-13] MEDS ORDERED: ACETAMINOPHEN 325 MG TABLET (FP) PO PRN (18:48)
[2022-03-13] MEDS ORDERED: MAGNESIUM HYDROX 2400MG/30ML ORAL SUSPENSION 30 ML CUP PO PRN (18:48)
[2022-03-13] MEDS ORDERED: NICOTINE 10 MG CARTRIDGE (INHALER) IH PRN (18:48)
[2022-03-14] MEDS ORDERED: TUBERCULIN PPD 5 TU/0.1ML VIAL ID ONE ×3 (00:48→01:05)
[2022-03-14] MEDS: THIAMINE HCL 100 MG TABLET (FP) PO SCH ×2 (01:36→21:32)
[2022-03-14] MEDS: PRENATAL VITAMINS W/ FOLIC ACID TABLET (FP) PO SCH (09:08)
[2022-03-14] MEDS: PANTOPRAZOLE 20 MG TABLET PO SCH ×2 (11:15→21:33)
[2022-03-14] MEDS: risperiDONE 0.5 MG TABLET PO SCH (12:30)
[2022-03-14 14:11] LABS: CREATININE 0.8 mg/dL (0.55-1.3); HEMATOCRIT 33.9 % (35.4-49); HEMOGLOBIN 10.9 GM/dL (11.7-16.9); MCH 27.3 pg (25.7-33.7); MCHC 32.2 g/dl (32.0-35.9); MEAN CELL VOLUME 84.9 fl (80-96); MEAN PLT VOLUME 11.2 fl (7.5-11.1); PLATELET COUNT 293 10^3/uL (134-434); RDW 18.3 % (11.9-15.9); WHITE BLOOD COUNT 3.4 K/mm3 (4.0-10.0)
[2022-03-14 14:13] LABS: BLOOD UREA NITROGEN 12.8 mg/dL (7-18); TOT PROT 6.8 g/dl (6.4-8.2)
[2022-03-14 14:14] LABS: CALCIUM 8.9 mg/dL (8.5-10.1)
[2022-03-14 14:15] LABS: BILIRUBIN,TOTAL 0.3 mg/dL (0.2-1)
[2022-03-14 14:32] LABS: SYPHILIS W/ RPR CONF NON-REACTIVE (NONREACTIVE)
[2022-03-14] MEDS: ABACAVIR/DOLUTEGRAVIR/LAMIVUDI (TRIUMEQ) TABLET -NF PO SCH (15:30)
[2022-03-14] MEDS: MELATONIN 5 MG TABLETS PO PRN (21:32)
[2022-03-14] MEDS: hydrOXYzine PAMOATE 25 MG CAPSULE (FP) PO PRN (21:33)
[2022-03-14] MEDS: risperiDONE 1 MG TABLET PO SCH (21:34)
[2022-03-15] MEDS: ABACAVIR/DOLUTEGRAVIR/LAMIVUDI (TRIUMEQ) TABLET -NF PO SCH (08:49)
[2022-03-15] MEDS: PRENATAL VITAMINS W/ FOLIC ACID TABLET (FP) PO SCH (10:24)
[2022-03-15] MEDS: risperiDONE 0.5 MG TABLET PO SCH (10:24)
[2022-03-15] MEDS: PANTOPRAZOLE 20 MG TABLET PO SCH ×2 (10:24→21:20)
[2022-03-15 15:54] LABS: PH,URINE 8.5 (5.0-8.0); URINE APPEARANCE CLEAR; URINE BILIRUBIN NEGATIVE (NEGATIVE); URINE COLOR YELLOW; URINE GLUCOSE (UA) NEGATIVE (NEGATIVE); URINE KETONE NEGATIVE (NEGATIVE); URINE LEUK ESTERASE NEGATIVE (NEGATIVE); URINE NITRITE NEGATIVE (NEGATIVE); URINE PROTEIN NEGATIVE (NEGATIVE); URINE UROBILINOGEN 0.2 mg/dL (0.2-1.0)
[2022-03-15] MEDS: hydrOXYzine PAMOATE 25 MG CAPSULE (FP) PO PRN (21:20)
[2022-03-15] MEDS: risperiDONE 1 MG TABLET PO SCH (21:20)
[2022-03-15] MEDS: THIAMINE HCL 100 MG TABLET (FP) PO SCH (21:20)
[2022-03-15] MEDS: MELATONIN 5 MG TABLETS PO PRN (21:20)
[2022-03-16] MEDS: ABACAVIR/DOLUTEGRAVIR/LAMIVUDI (TRIUMEQ) TABLET -NF PO SCH (07:05)
[2022-03-16] MEDS: PANTOPRAZOLE 20 MG TABLET PO SCH ×2 (09:18→21:23)
[2022-03-16] MEDS: risperiDONE 0.5 MG TABLET PO SCH (09:19)
[2022-03-16] MEDS: PRENATAL VITAMINS W/ FOLIC ACID TABLET (FP) PO SCH (09:19)
[2022-03-16] MEDS: THIAMINE HCL 100 MG TABLET (FP) PO SCH (21:23)
[2022-03-16] MEDS: MELATONIN 5 MG TABLETS PO PRN (21:23)
[2022-03-16] MEDS: risperiDONE 1 MG TABLET PO SCH (21:23)
[2022-03-16] MEDS: hydrOXYzine PAMOATE 25 MG CAPSULE (FP) PO PRN (21:23)
[2022-03-17 06:53] VITALS: RESP 20
[2022-03-17] MEDS: ABACAVIR/DOLUTEGRAVIR/LAMIVUDI (TRIUMEQ) TABLET -NF PO SCH (07:03)
[2022-03-17] MEDS: PANTOPRAZOLE 20 MG TABLET PO SCH ×2 (09:40→21:30)
[2022-03-17] MEDS: PRENATAL VITAMINS W/ FOLIC ACID TABLET (FP) PO SCH (09:40)
[2022-03-17] MEDS: risperiDONE 0.5 MG TABLET PO SCH (09:41)
[2022-03-17] MEDS: THIAMINE HCL 100 MG TABLET (FP) PO SCH (21:30)
[2022-03-17] MEDS: risperiDONE 1 MG TABLET PO SCH (21:30)
[2022-03-18 06:42] VITALS: TEMP 97.5
[2022-03-18] MEDS: ABACAVIR/DOLUTEGRAVIR/LAMIVUDI (TRIUMEQ) TABLET -NF PO SCH (07:03)
[2022-03-18] MEDS: PRENATAL VITAMINS W/ FOLIC ACID TABLET (FP) PO SCH (09:43)
[2022-03-18] MEDS: risperiDONE 0.5 MG TABLET PO SCH (09:43)
[2022-03-18] MEDS: PANTOPRAZOLE 20 MG TABLET PO SCH ×2 (09:43→21:58)
[2022-03-18] MEDS: THIAMINE HCL 100 MG TABLET (FP) PO SCH (21:58)
[2022-03-18] MEDS: risperiDONE 1 MG TABLET PO SCH (21:58)
[2022-03-19 06:39] VITALS: BP 109/65; PULSE 71
[2022-03-19] MEDS: ABACAVIR/DOLUTEGRAVIR/LAMIVUDI (TRIUMEQ) TABLET -NF PO SCH (08:00)
[2022-03-19] MEDS: PRENATAL VITAMINS W/ FOLIC ACID TABLET (FP) PO SCH (09:39)
[2022-03-19] MEDS: risperiDONE 0.5 MG TABLET PO SCH (09:39)
[2022-03-19] MEDS: PANTOPRAZOLE 20 MG TABLET PO SCH (09:39)
== END 2022-03-19 14:08 | disposition home or self-care (01) | DRG 772 ==
LOC: YASAS 14:13 → Y3E 23:11
PROVIDERS: ADMIT Allergy & Immunology; ATTEND Psychiatry & Neurology Pain Medicine
PROC: HZ42ZZZ Group Counseling for Substance Abuse Treatment, Cognitive-Behavioral (ICD-10-PCS; principal; 2022-03-13)
DX: F14.20 Cocaine dependence, uncomplicated (principal); F15.20 Other stimulant dependence, uncomplicated; F12.20 Cannabis dependence, uncomplicated; F17.210 Nicotine dependence, cigarettes, uncomplicated; F25.9 Schizoaffective disorder, unspecified; F19.24 Other psychoactive substance dependence with psychoactive substance-induced mood disorder; F39 Unspecified mood [affective] disorder; Z21 Asymptomatic human immunodeficiency virus [HIV] infection status; I10 Essential (primary) hypertension; K21.9 Gastro-esophageal reflux disease without esophagitis
CPT/HCPCS: 36415; 80053; 81003; 85027; 86780; 86803; C9803-CS; J2794; U0003; U0005